=== PATIENT | male | born 1995 | race Caucasian/White ===

== ENCOUNTER 2018-04-01 23:20 | Emergency (ER) | payer OTHER ==
[~2018-04-01] VITALS: Ht 162.6 cm; Wt 62.7 kg
[2018-04-02 00:34] LABS: MONOSPOT (MONONUCLEOSIS SEROL) NEGATIVE
[2018-04-02] MEDS ORDERED: AMOXICILLIN500 MG PO (00:35)
[2018-04-02] MEDS ORDERED: MOTRIN600 MG PO (00:35)
[2018-04-02 00:50] VITALS: BP 144/88
== END 2018-04-02 00:54 | disposition home or self-care (01) ==
LOC: EME 23:20
PROVIDERS: Physician Assistant
DX: J03.90 Acute tonsillitis, unspecified (principal); Z88.5 Allergy status to narcotic agent
CPT/HCPCS: 86308; 99281; 99284